=== PATIENT | male | born 1930 | race Caucasian/White ===

== ENCOUNTER 2018-02-22 12:10 | Emergency (ER) | payer OTHER ==
[~2018-02-22] VITALS: Ht 190.5 cm; Wt 128.0 kg
[~2018-02-22 12:10] MED LIST: ACET-76 PO; ALLO300T PO; APIX2.5T PO; AZIT500T PO; BUDE10.2 INH; CEFD300C37 PO; CLON0.5T11 PO; CYAN1TAB52 PO; ENAL2.5T PO; FEXO180T PO; FLUT1DIS5 IH; FURO20TA3 PO; FURO40TA6 PO; GABA300C10 PO; IPRA3AMP30 NEB; LEVO50TA5 PO; LEVO750T26 PO; MIRA50TA PO; MULT1CAP19 PO; PRAV10TA2 PO; TERA10CA3 PO; TIOT18CA INH; VIT C PO; VIT D3 PO; WARFARIN PO
[2018-02-22] MEDS ORDERED: ALBUTEROL SULFATE 2.5 MG/3 ML NPPB SCH (12:30)
[2018-02-22] MEDS ORDERED: IPRATROPIUM 0.5 MG/2.5 ML INHA NPPB ONE (12:30)
[2018-02-22] MEDS ORDERED: SODIUM CHLORIDE FLUSH 10ML SYR IVF ONE (12:30)
[2018-02-22] MEDS ORDERED: ALBUTEROL SULFATE 2.5 MG/3 ML NPPB ONE (12:35)
[2018-02-22] MEDS ORDERED: ALBUTEROL/IPRATROPIUM 2.5MG/0.5MG, 3 ML NEB ONE (12:35)
[2018-02-22 13:07] LABS: ALANINE AMINOTRANSFERASE 21 U/L (12-78); ALBUMIN 2.8 g/dL (3.4-5.0); ANION GAP 6 mmol/L (5-15); CALCIUM 8.6 mg/dL (8.5-10.1); CHLORIDE 104 mmol/L (98-107)
[2018-02-22 13:10] LABS: BASOPHILS # (AUTO) 0.06 x10^3/uL (0-0.1); BASOPHILS % (AUTO) 1 % (0-1); EOSINOPHILS # (AUTO) 0.38 x10^3/uL (0-0.4); EOSINOPHILS % (AUTO) 4 % (1-7); LYMPHOCYTES # (AUTO) 2.11 x10^3/uL (1-3.4); LYMPHOCYTES % (AUTO) 23 % (22-44); MD NO; MEAN CORPUSCULAR HGB CONC 33.5 g/dL (33.2-36.2); MEAN CORPUSCULAR VOLUME 98.6 fL (81-97); MEAN PLATELET VOLUME 7.3 fL (7.4-10.4); MONOCYTES # (AUTO) 1.42 x10^3/uL (0.2-0.8); MONOCYTES % (AUTO) 15 % (2-9); NEUTROPHILS # (AUTO) 5.32 x10^3/uL (1.8-6.8); NEUTROPHILS % (AUTO) 57 % (42-75); PLATELET COUNT 189 x10^3/uL (130-400); RED BLOOD COUNT 3.18 x10^6/uL (4.38-5.82); RED CELL DISTRIBUTION WIDTH 16.7 % (9.4-14.8)
[2018-02-22 13:12] LABS: ALKALINE PHOSPHATASE 106 U/L (45-117); BILIRUBIN,TOTAL 0.3 mg/dL (0.2-1.0); CREATININE 1.29 mg/dL (0.7-1.3); TOTAL PROTEIN 7.7 g/dL (6.4-8.2); TROPONIN I < 0.015 ng/mL (0.000-0.045)
[2018-02-22 13:48] LABS: MICROSCOPIC AUTO
[2018-02-22 13:52] LABS: CULTURE INDICATED? YES
[2018-02-22] MEDS ORDERED: PIPERACILLIN/TAZO/PMX 3.375GM 50 ML IV ONE (14:00)
[2018-02-22] MEDS ORDERED: FUROSEMIDE 40 MG/4 ML IV ONE (14:00)
[2018-02-22 15:45] VITALS: BP 134/79
[2018-02-22 16:14] LABS: FOLATE LEVEL > 20.0 ng/mL (3.1-17.5)
== END 2018-02-23 14:04 | disposition home or self-care (01) ==
LOC: ED 13:35 → UNDOADMIN 13:54 → EDIP 13:54 → 4WST 15:27 → EDIP 15:27 → ED 02-23 14:04
DX: A41.9 Sepsis, unspecified organism (principal); I11.0 Hypertensive heart disease with heart failure; I50.1 Left ventricular failure, unspecified; Z87.891 Personal history of nicotine dependence; Z86.718 Personal history of other venous thrombosis and embolism; D68.9 Coagulation defect, unspecified; J44.9 Chronic obstructive pulmonary disease, unspecified
CPT/HCPCS: 36415; 71045; 80053; 81001; 82607; 82746; 83605; 83880; 84145; 84443; 84484; 85025; 87040; 87086; 93005; 96374; 96375; 99291; J1940; J2543; J7512

== ENCOUNTER 2018-02-22 12:11 | Inpatient (IN) | payer OTHER ==
[~2018-02-22] VITALS: Ht 190.5 cm; Wt 142.6 kg
[2018-02-22] MEDS ORDERED: ALBUTEROL/IPRATROPIUM 2.5MG/0.5MG, 3 ML ONE ×2 (12:44→16:00)
[2018-02-22] MEDS ORDERED: ALBUTEROL SULFATE 2.5MG/0.5ML ONE (12:44)
[2018-02-22] MEDS ORDERED: PIPERACILLIN/TAZO/PMX 3.375GM 50 ML ONE (13:35)
[2018-02-22] MEDS ORDERED: FUROSEMIDE 40 MG/4 ML ONE (13:36)
[2018-02-22] MEDS ORDERED: PLEASE ENTER HEIGHT AND WEIGHT MC SCH (15:30)
[2018-02-22] MEDS ORDERED: CEFTRIAXONE PMX 1GM/50ML 50 ML IV SCH (15:30)
[2018-02-22] MEDS ORDERED: ONDANSETRON ODT 4 MG PO PRN (15:30)
[2018-02-22] MEDS ORDERED: ONDANSETRON 2MG/ML, 2ML IVPush PRN (15:30)
[2018-02-22] MEDS ORDERED: ACETAMINOPHEN 325 MG TABLET PO PRN (15:30)
[2018-02-22] MEDS ORDERED: DOCUSATE 100 MG CAPSULE PO PRN (15:30)
[2018-02-22] MEDS ORDERED: ALBUTEROL/IPRATROPIUM 2.5MG/0.5MG, 3 ML NPPB PRN (16:00)
[2018-02-22 16:25] VITALS: BP 132/76
[2018-02-22] MEDS ORDERED: FUROSEMIDE 40 MG/4 ML IV SCH (17:00)
[2018-02-22] MEDS: PLEASE ENTER HEIGHT AND WEIGHT MC SCH (17:00)
[2018-02-22] MEDS: CEFTRIAXONE 1,000 MG in SODIUM CHLORIDE 0.9% 50 ML IV SCH (18:04)
[2018-02-22 20:00] VITALS: BP_SYST 102; BP_DIAS 28; BP_DIAS 58
[2018-02-22] MEDS: ALBUTEROL/IPRATROPIUM 2.5MG/0.5MG, 3 ML NPPB SCH (20:00)
[2018-02-22] MEDS: TERAZOSIN 5MG CAPSULE PO SCH (21:00)
[2018-02-22] MEDS: DOXYCYCLINE 100 MG in DEXTROSE 5% 250 ML IV SCH (21:42)
[2018-02-22] MEDS: APIXABAN 2.5 MG TABLET PO SCH (22:26)
[2018-02-22] MEDS: PRAVASTATIN 20 MG TABLET PO SCH (22:27)
[2018-02-23] MEDS: PLEASE ENTER HEIGHT AND WEIGHT MC SCH ×2 (01:00→09:00)
[2018-02-23 02:39] VITALS: BP 123/66
[2018-02-23 05:14] LABS: BASOPHILS # (AUTO) 0.02 x10^3/uL (0-0.1); BASOPHILS % (AUTO) 0 % (0-1); EOSINOPHILS % (AUTO) 0 % (1-7); LYMPHOCYTES # (AUTO) 0.61 x10^3/uL (1-3.4); LYMPHOCYTES % (AUTO) 14 % (22-44); MD NO; MEAN CORPUSCULAR HEMOGLOBIN 32.7 pg (27.5-34.5); MEAN CORPUSCULAR HGB CONC 33.5 g/dL (33.2-36.2); MEAN CORPUSCULAR VOLUME 97.6 fL (81-97); MEAN PLATELET VOLUME 7.2 fL (7.4-10.4); MONOCYTES % (AUTO) 5 % (2-9); NEUTROPHILS # (AUTO) 3.52 x10^3/uL (1.8-6.8); NEUTROPHILS % (AUTO) 81 % (42-75); PLATELET COUNT 173 x10^3/uL (130-400); RED BLOOD COUNT 2.98 x10^6/uL (4.38-5.82); RED CELL DISTRIBUTION WIDTH 16.9 % (9.4-14.8)
[2018-02-23 05:15] LABS: ANION GAP 9 mmol/L (5-15); CALCIUM 8.2 mg/dL (8.5-10.1); CHLORIDE 101 mmol/L (98-107); CREATININE 1.47 mg/dL (0.7-1.3)
[2018-02-23] MEDS: ALBUTEROL/IPRATROPIUM 2.5MG/0.5MG, 3 ML NPPB SCH ×5 (06:50→20:00)
[2018-02-23 06:58] VITALS: BP 118/65
[2018-02-23] MEDS ORDERED: FUROSEMIDE 20 MG/2 ML IV SCH (07:30)
[2018-02-23] MEDS: TEMPLATE NON-FORMULARY MED. (Mirabegron** (Myrbetriq**) 50 MG) PO SCH (09:00)
[2018-02-23] MEDS: APIXABAN 2.5 MG TABLET PO SCH ×2 (09:12→20:54)
[2018-02-23] MEDS: CHOLECALCIFEROL 5,000u TAB PO SCH (09:12)
[2018-02-23] MEDS: LEVOTHYROXINE 50 MCG TABLET PO SCH (09:12)
[2018-02-23] MEDS: ALLOPURINOL 300 MG TABLET PO SCH (09:13)
[2018-02-23] MEDS: CYANOCOBALAMIN 1,000 MCG TABLET PO SCH (09:13)
[2018-02-23] MEDS: MULTIVITAMIN 1 TABLET PO SCH (09:13)
[2018-02-23] MEDS: POLYETHYLENE GLYCOL 17 GM PACKET PO PRN (09:13)
[2018-02-23 12:14] VITALS: BP 135/70
[2018-02-23] MEDS: DOXYCYCLINE 100 MG in DEXTROSE 5% 250 ML IV SCH ×2 (12:28→22:28)
[2018-02-23] MEDS ORDERED: LACTULOSE 10 GM/15 ML UDC PO PRN (16:30)
[2018-02-23] MEDS: CEFTRIAXONE 1,000 MG in SODIUM CHLORIDE 0.9% 50 ML IV SCH (16:44)
[2018-02-23 20:25] VITALS: BP 127/75
[2018-02-23] MEDS: TERAZOSIN 5MG CAPSULE PO SCH (20:54)
[2018-02-24 01:42] VITALS: BP 132/77
[2018-02-24 05:45] LABS: ALBUMIN 2.7 g/dL (3.4-5.0); CHLORIDE 102 mmol/L (98-107)
[2018-02-24 05:46] LABS: BASOPHILS # (AUTO) 0.02 x10^3/uL (0-0.1); BASOPHILS % (AUTO) 0 % (0-1); EOSINOPHILS % (AUTO) 0 % (1-7); LYMPHOCYTES # (AUTO) 1.07 x10^3/uL (1-3.4); LYMPHOCYTES % (AUTO) 18 % (22-44); MD NO; MEAN CORPUSCULAR HEMOGLOBIN 33.1 pg (27.5-34.5); MEAN CORPUSCULAR HGB CONC 33.7 g/dL (33.2-36.2); MEAN CORPUSCULAR VOLUME 98.2 fL (81-97); MEAN PLATELET VOLUME 7.4 fL (7.4-10.4); MONOCYTES % (AUTO) 14 % (2-9); NEUTROPHILS # (AUTO) 3.98 x10^3/uL (1.8-6.8); NEUTROPHILS % (AUTO) 68 % (42-75); PLATELET COUNT 189 x10^3/uL (130-400); RED BLOOD COUNT 2.95 x10^6/uL (4.38-5.82); RED CELL DISTRIBUTION WIDTH 16.3 % (9.4-14.8)
[2018-02-24 06:09] LABS: ANION GAP 5 mmol/L (5-15); CALCIUM 8.7 mg/dL (8.5-10.1); CREATININE 1.14 mg/dL (0.7-1.3); FOLATE LEVEL 13.9 ng/mL (3.1-17.5); THYROID STIMULATING HORMONE 0.708 mIU/L (0.358-3.740)
[2018-02-24] MEDS: ALBUTEROL/IPRATROPIUM 2.5MG/0.5MG, 3 ML NPPB SCH ×4 (07:20→18:42)
[2018-02-24 07:26] VITALS: BP 127/67
[2018-02-24] MEDS: APIXABAN 2.5 MG TABLET PO SCH ×2 (08:02→20:14)
[2018-02-24] MEDS: LEVOTHYROXINE 50 MCG TABLET PO SCH (08:02)
[2018-02-24] MEDS: CYANOCOBALAMIN 1,000 MCG TABLET PO SCH (08:02)
[2018-02-24] MEDS: CHOLECALCIFEROL 5,000u TAB PO SCH (08:03)
[2018-02-24] MEDS: MULTIVITAMIN 1 TABLET PO SCH (08:03)
[2018-02-24] MEDS: ALLOPURINOL 300 MG TABLET PO SCH (08:03)
[2018-02-24] MEDS: TEMPLATE NON-FORMULARY MED. (Mirabegron** (Myrbetriq**) 50 MG) PO SCH (08:04)
[2018-02-24] MEDS: DOXYCYCLINE 100 MG in DEXTROSE 5% 250 ML IV SCH ×2 (09:32→20:14)
[2018-02-24 14:16] VITALS: BP 144/75
[2018-02-24] MEDS: POLYETHYLENE GLYCOL 17 GM PACKET PO PRN (16:36)
[2018-02-24] MEDS: CEFTRIAXONE 1,000 MG in SODIUM CHLORIDE 0.9% 50 ML IV SCH (16:36)
[2018-02-24] MEDS: FUROSEMIDE 20 MG TABLET PO SCH (16:36)
[2018-02-24 20:05] VITALS: BP 144/67
[2018-02-24] MEDS: TERAZOSIN 5MG CAPSULE PO SCH (20:14)
[2018-02-25 01:59] VITALS: BP 136/72
[2018-02-25 06:12] LABS: ALBUMIN 2.6 g/dL (3.4-5.0); CALCIUM 8.8 mg/dL (8.5-10.1); CHLORIDE 105 mmol/L (98-107)
[2018-02-25 06:14] LABS: ANION GAP 4 mmol/L (5-15)
[2018-02-25 06:15] LABS: CREATININE 1.03 mg/dL (0.7-1.3)
[2018-02-25] MEDS: ALBUTEROL/IPRATROPIUM 2.5MG/0.5MG, 3 ML NPPB SCH ×3 (07:44→16:50)
[2018-02-25 07:48] VITALS: BP 155/75
[2018-02-25] MEDS: APIXABAN 2.5 MG TABLET PO SCH ×2 (08:18→20:16)
[2018-02-25] MEDS: CYANOCOBALAMIN 1,000 MCG TABLET PO SCH (08:18)
[2018-02-25] MEDS: MULTIVITAMIN 1 TABLET PO SCH (08:19)
[2018-02-25] MEDS: FUROSEMIDE 20 MG TABLET PO SCH (08:19)
[2018-02-25] MEDS: DOXYCYCLINE 100MG TABLET PO SCH ×2 (08:19→20:17)
[2018-02-25] MEDS: LEVOTHYROXINE 50 MCG TABLET PO SCH (08:19)
[2018-02-25] MEDS: CHOLECALCIFEROL 5,000u TAB PO SCH (08:19)
[2018-02-25] MEDS: TEMPLATE NON-FORMULARY MED. (Mirabegron** (Myrbetriq**) 50 MG) PO SCH (08:20)
[2018-02-25] MEDS: ALLOPURINOL 300 MG TABLET PO SCH (08:20)
[2018-02-25] MEDS: PRAVASTATIN 20 MG TABLET PO SCH (08:20)
[2018-02-25] MEDS ORDERED: FUROSEMIDE 20 MG TABLET PO SCH (09:00)
[2018-02-25 11:16] LABS: OCCULT BLOOD NEGATIVE (NEGATIVE)
[2018-02-25 13:22] VITALS: BP 132/67
[2018-02-25] MEDS: CEFTRIAXONE 1,000 MG in SODIUM CHLORIDE 0.9% 50 ML IV SCH (16:11)
[2018-02-25 19:38] VITALS: BP 147/69
[2018-02-25] MEDS: TERAZOSIN 5MG CAPSULE PO SCH (20:17)
[2018-02-26 01:36] VITALS: BP 149/67
[2018-02-26 05:07] LABS: MEAN CORPUSCULAR HEMOGLOBIN 32.7 pg (27.5-34.5); MEAN CORPUSCULAR HGB CONC 32.8 g/dL (33.2-36.2); MEAN CORPUSCULAR VOLUME 99.5 fL (81-97); MEAN PLATELET VOLUME 7.4 fL (7.4-10.4); PLATELET COUNT 201 x10^3/uL (130-400); RED BLOOD COUNT 3.15 x10^6/uL (4.38-5.82)
[2018-02-26 05:09] LABS: CALCIUM 8.3 mg/dL (8.5-10.1); CHLORIDE 106 mmol/L (98-107)
[2018-02-26 05:13] LABS: ALBUMIN 2.7 g/dL (3.4-5.0); ANION GAP 5 mmol/L (5-15); CREATININE 1.08 mg/dL (0.7-1.3)
[2018-02-26 05:53] LABS: MD YES
[2018-02-26 05:55] LABS: <PLATELET ESTIMATE> ADEQUATE; <PLT MORPHOLOGY> NORMAL PLT MORPH; ANISOCYTOSIS 1+; LYMPH#(MANUAL) 0.97 x10^3/uL (1-3.4); LYMPHS% (MANUAL) 23 % (22-44); MONOS#(MANUAL) 0.55 x10^3/uL (0.3-2.7); MONOS% (MANUAL) 13 % (2-9); SEG#(MANUAL) 2.69 x10^3/uL (1.8-6.8); SEGS% (MANUAL) 64 % (42-75)
[2018-02-26 07:33] VITALS: BP 144/69
[2018-02-26] MEDS: LEVOTHYROXINE 50 MCG TABLET PO SCH (08:02)
[2018-02-26] MEDS: CYANOCOBALAMIN 1,000 MCG TABLET PO SCH (08:02)
[2018-02-26] MEDS: APIXABAN 2.5 MG TABLET PO SCH ×2 (08:03→20:43)
[2018-02-26] MEDS: MULTIVITAMIN 1 TABLET PO SCH (08:03)
[2018-02-26] MEDS: FUROSEMIDE 20 MG TABLET PO SCH (08:03)
[2018-02-26] MEDS: DOXYCYCLINE 100MG TABLET PO SCH (08:03)
[2018-02-26] MEDS: CHOLECALCIFEROL 5,000u TAB PO SCH (08:03)
[2018-02-26] MEDS: TEMPLATE NON-FORMULARY MED. (Mirabegron** (Myrbetriq**) 50 MG) PO SCH (08:04)
[2018-02-26] MEDS: ALLOPURINOL 300 MG TABLET PO SCH (08:04)
[2018-02-26] MEDS: PIPERACILLIN/TAZO/PMX 3.375GM 50 ML IV SCH ×2 (13:03→18:26)
[2018-02-26 13:11] VITALS: BP 124/68
[2018-02-26 18:39] VITALS: BP 146/73
[2018-02-26] MEDS: TERAZOSIN 5MG CAPSULE PO SCH (20:43)
[2018-02-27] MEDS: PIPERACILLIN/TAZO/PMX 3.375GM 50 ML IV SCH ×4 (00:02→18:00)
[2018-02-27 02:15] VITALS: BP 129/76
[2018-02-27 06:08] LABS: ALBUMIN 2.5 g/dL (3.4-5.0); ANION GAP 3 mmol/L (5-15); CALCIUM 8.6 mg/dL (8.5-10.1); CHLORIDE 108 mmol/L (98-107); CREATININE 1.18 mg/dL (0.7-1.3)
[2018-02-27] MEDS: ALBUTEROL SULFATE 2.5 MG/3 ML NPPB SCH ×3 (07:51→21:25)
[2018-02-27 08:34] VITALS: BP 120/65
[2018-02-27] MEDS: TEMPLATE NON-FORMULARY MED. (Mirabegron** (Myrbetriq**) 50 MG) PO SCH (08:42)
[2018-02-27] MEDS: MULTIVITAMIN 1 TABLET PO SCH (08:49)
[2018-02-27] MEDS: APIXABAN 2.5 MG TABLET PO SCH ×2 (08:49→20:48)
[2018-02-27] MEDS: PRAVASTATIN 20 MG TABLET PO SCH (08:50)
[2018-02-27] MEDS: CHOLECALCIFEROL 5,000u TAB PO SCH (08:50)
[2018-02-27] MEDS: CYANOCOBALAMIN 1,000 MCG TABLET PO SCH (08:50)
[2018-02-27] MEDS: FUROSEMIDE 20 MG TABLET PO SCH (08:52)
[2018-02-27] MEDS: LEVOTHYROXINE 50 MCG TABLET PO SCH (08:52)
[2018-02-27] MEDS: ALLOPURINOL 300 MG TABLET PO SCH (08:58)
[2018-02-27 12:24] VITALS: BP 118/67
[2018-02-27] MEDS: TERAZOSIN 5MG CAPSULE PO SCH (20:48)
[2018-02-27 21:00] VITALS: BP 114/72
[2018-02-28] MEDS: PIPERACILLIN/TAZO/PMX 3.375GM 50 ML IV SCH ×4 (00:08→19:44)
[2018-02-28 02:11] VITALS: BP 131/67
[2018-02-28 06:14] LABS: MEAN CORPUSCULAR HEMOGLOBIN 33.1 pg (27.5-34.5); MEAN CORPUSCULAR HGB CONC 33.2 g/dL (33.2-36.2); MEAN CORPUSCULAR VOLUME 99.5 fL (81-97); MEAN PLATELET VOLUME 7.1 fL (7.4-10.4); PLATELET COUNT 194 x10^3/uL (130-400); RED BLOOD COUNT 3.11 x10^6/uL (4.38-5.82); RED CELL DISTRIBUTION WIDTH 16.4 % (9.4-14.8)
[2018-02-28 06:25] LABS: CHLORIDE 106 mmol/L (98-107)
[2018-02-28 06:34] LABS: ALANINE AMINOTRANSFERASE 91 U/L (12-78); ALBUMIN 2.4 g/dL (3.4-5.0); ALKALINE PHOSPHATASE 68 U/L (45-117); ANION GAP 6 mmol/L (5-15); BILIRUBIN,TOTAL 0.3 mg/dL (0.2-1.0); CALCIUM 8.5 mg/dL (8.5-10.1); CREATININE 1.68 mg/dL (0.7-1.3)
[2018-02-28 06:53] LABS: MD YES
[2018-02-28 06:54] LABS: EOS#(MANUAL) 0.14 x10^3/uL (0.0-0.4); EOS% (MANUAL) 2 % (1-7); LYMPH#(MANUAL) 1.77 x10^3/uL (1-3.4); LYMPHS% (MANUAL) 26 % (22-44); MONOS#(MANUAL) 0.27 x10^3/uL (0.3-2.7); MONOS% (MANUAL) 4 % (2-9); SEG#(MANUAL) 4.62 x10^3/uL (1.8-6.8); SEGS% (MANUAL) 68 % (42-75)
[2018-02-28 06:55] LABS: <PLATELET ESTIMATE> ADEQUATE; <PLT MORPHOLOGY> NORMAL PLT MORPH; ANISOCYTOSIS 1+
[2018-02-28 08:50] VITALS: BP 131/66
[2018-02-28] MEDS: ALBUTEROL SULFATE 2.5 MG/3 ML NPPB SCH ×2 (08:56→20:58)
[2018-02-28] MEDS: TEMPLATE NON-FORMULARY MED. (Mirabegron** (Myrbetriq**) 50 MG) PO SCH (09:00)
[2018-02-28] MEDS: APIXABAN 2.5 MG TABLET PO SCH ×2 (09:44→20:37)
[2018-02-28] MEDS: CHOLECALCIFEROL 5,000u TAB PO SCH (09:44)
[2018-02-28] MEDS: MULTIVITAMIN 1 TABLET PO SCH (09:44)
[2018-02-28] MEDS: LEVOTHYROXINE 50 MCG TABLET PO SCH (09:44)
[2018-02-28] MEDS: FUROSEMIDE 20 MG TABLET PO SCH (09:44)
[2018-02-28] MEDS: CYANOCOBALAMIN 1,000 MCG TABLET PO SCH (09:44)
[2018-02-28] MEDS: ALLOPURINOL 300 MG TABLET PO SCH (09:44)
[2018-02-28 13:00] VITALS: BP 116/68
[2018-02-28 19:25] VITALS: BP 119/65
[2018-02-28 20:35] VITALS: BP 137/62
[2018-02-28] MEDS: TERAZOSIN 5MG CAPSULE PO SCH (20:37)
[2018-03-01] MEDS: PIPERACILLIN/TAZO/PMX 3.375GM 50 ML IV SCH ×3 (01:10→13:54)
[2018-03-01 01:49] VITALS: BP 130/67
[2018-03-01 07:05] VITALS: BP 135/72
[2018-03-01] MEDS: TEMPLATE NON-FORMULARY MED. (Mirabegron** (Myrbetriq**) 50 MG) PO SCH (08:47)
[2018-03-01] MEDS: LEVOTHYROXINE 50 MCG TABLET PO SCH (08:56)
[2018-03-01] MEDS: ALLOPURINOL 300 MG TABLET PO SCH (08:56)
[2018-03-01] MEDS: APIXABAN 2.5 MG TABLET PO SCH (08:56)
[2018-03-01] MEDS: CYANOCOBALAMIN 1,000 MCG TABLET PO SCH (08:56)
[2018-03-01] MEDS: FUROSEMIDE 20 MG TABLET PO SCH (08:56)
[2018-03-01] MEDS: PRAVASTATIN 20 MG TABLET PO SCH (08:56)
[2018-03-01] MEDS: CHOLECALCIFEROL 5,000u TAB PO SCH (08:57)
[2018-03-01] MEDS: MULTIVITAMIN 1 TABLET PO SCH (08:57)
[2018-03-01] MEDS: ALBUTEROL SULFATE 2.5 MG/3 ML NPPB SCH (09:00)
[2018-03-01 14:05] VITALS: BP 131/67
== END 2018-03-01 16:45 | DRG 177 ==
LOC: ED 13:53 → 4WST 13:54
PROVIDERS: ADMIT Internal Medicine; ATTEND Internal Medicine
DX: J15.6 Pneumonia due to other Gram-negative bacteria (principal); I50.33 Acute on chronic diastolic (congestive) heart failure; J96.20 Acute and chronic respiratory failure, unspecified whether with hypoxia or hypercapnia; N17.9 Acute kidney failure, unspecified; J44.1 Chronic obstructive pulmonary disease with (acute) exacerbation; J44.0 Chronic obstructive pulmonary disease with (acute) lower respiratory infection; J98.11 Atelectasis; D75.89 Other specified diseases of blood and blood-forming organs; E03.9 Hypothyroidism, unspecified; E66.9 Obesity, unspecified; E78.5 Hyperlipidemia, unspecified; G47.33 Obstructive sleep apnea (adult) (pediatric); G62.9 Polyneuropathy, unspecified; G89.29 Other chronic pain; J84.10 Pulmonary fibrosis, unspecified; K57.90 Diverticulosis of intestine, part unspecified, without perforation or abscess without bleeding; M10.9 Gout, unspecified; N40.0 Benign prostatic hyperplasia without lower urinary tract symptoms; Z86.718 Personal history of other venous thrombosis and embolism; Z90.49 Acquired absence of other specified parts of digestive tract; B96.5 Pseudomonas (aeruginosa) (mallei) (pseudomallei) as the cause of diseases classified elsewhere; Z68.39 Body mass index [BMI] 39.0-39.9, adult
CPT/HCPCS: 36415; 71250; 80048; 80053; 82040; 82272; 82607; 82746; 83735; 84145; 84443; 85025; 87070; 87186; 87205; 93306; 94640; 99285; G0378; J0696; J1940; J2543; J7060; J7613; J7620; J7512